=== PATIENT | male | born 1960 | race Caucasian/White ===

== ENCOUNTER 2018-02-28 10:34 | Emergency (ER) | payer MEDICARE, MEDICAID ==
[~2018-02-28] VITALS: Ht 152.4 cm; Wt 81.8 kg
[~2018-02-28 10:34] MED LIST: ALBU18HF2 INH; ASPI-1265 PO; BUPR100T13 PO; BUPR150T8 PO; CALC667T2 PO; CLON-529 PO; CLOT15CR73 TP; COU1T PO; COU5T PO; DIPH-915 PO; DIPH25CA83 PO; DOCU-28 PO; DOCU100C40 PO; FOLI0.8T7 PO; FOLI1TAB34 PO; FURO-149 PO; FURO40TA4 PO; HYDR-3965 PO; LABE100T5 PO; LABE200T28 PO; LEVO250T58 PO; LORA-269 PO; LORA1TAB PO; NIFE90TA37 PO; NITR0.4T51 SL; NITR1OIN TP; PANT-47 PO; PANT20TA3 PO; PANT40TA39 PO; PHO667C PO; QUET25TA PO; RES15C PO; TRAM50TA2 PO; UNABLE TO OBTAIN; VALS40TA2 PO; ZOF4T PO
[2018-02-28] MEDS ORDERED: CEPH500C5 PO (12:43)
[2018-02-28] MEDS ORDERED: CefTRIAXone 1000mg IM Kit (w/lidocaine diluent) IM ONE (12:45)
[2018-02-28] MEDS ORDERED: HYDR-3965 PO (13:07)
[2018-02-28 13:09] VITALS: BP 131/74
== END 2018-02-28 13:11 | disposition home or self-care (01) ==
LOC: ER 10:34
DX: L03.115 Cellulitis of right lower limb (principal); F12.90 Cannabis use, unspecified, uncomplicated; F15.90 Other stimulant use, unspecified, uncomplicated; Z56.0 Unemployment, unspecified; Z79.01 Long term (current) use of anticoagulants; Z79.899 Other long term (current) drug therapy
CPT/HCPCS: 73630; 93971; 96372; 99284; J0696

== ENCOUNTER 2018-11-05 15:26 | Emergency (ER) | payer MEDICARE, MEDICAID ==
[~2018-11-05] VITALS: Ht 175.3 cm; Wt 100.0 kg
[~2018-11-05 15:26] MED LIST changes: +CEPH500C5 PO
[2018-11-05 16:00] VITALS: BP 170/87
[2018-11-05 16:06] LABS: BASOPHILS # (AUTO) 0.1 X10'3 (0-0.2); BASOPHILS % (AUTO) 1.2 % (0-1); EOSINOPHILS # (AUTO) 0.2 X10'3 (0-0.9); EOSINOPHILS % (AUTO) 2.5 % (0-6); HEMATOCRIT 32.4 % (42.0-52.0); HEMOGLOBIN 10.7 g/dl (14.0-17.9); LYMPHOCYTES # (AUTO) 1.1 X10'3 (1.1-4.8); LYMPHOCYTES % (AUTO) 14.1 % (21-51); MEAN CORPUSCULAR HEMOGLOBIN 32.3 PG (27.0-31.0); MEAN CORPUSCULAR HGB CONC 33.1 g/dL (33.0-36.5); MEAN CORPUSCULAR VOLUME 97.6 FL (78-98); MEAN PLATELET VOLUME 6.4 FL (7.4-10.4); MONOCYTES # (AUTO) 0.4 X10'3 (0-0.9); MONOCYTES % (AUTO) 4.8 % (2-12); NEUTROPHILS # (AUTO) 6.1 X10'3 (1.8-7.7); NEUTROPHILS % (AUTO) 77.4 % (42-75); PLATELET COUNT 304 X10'3 (140-440); RED BLOOD COUNT 3.32 X10'6 (4.70-6.10); RED CELL DISTRIBUTION WIDTH 17.8 % (11.5-14.5); WHITE BLOOD COUNT 7.9 X10'3 (4.5-11.0)
[2018-11-05 16:20] LABS: ALANINE AMINOTRANSFERASE 17 U/L (12-78); ALBUMIN 3.7 G/DL (3.4-5.0); ALBUMIN/GLOBULIN RATIO 1.2 (1.1-1.5); ALKALINE PHOSPHATASE 96 IU/L (46-116); ANION GAP 12 (8-16); ASPARTATE AMINO TRANSFERASE 11 U/L (10-37); BILIRUBIN,TOTAL 0.4 MG/DL (0.1-1.0); BLOOD UREA NITROGEN 67 MG/DL (7-18); BUN/CREATININE RATIO 7.1 (5.4-32.0); CALCIUM 9.4 MG/DL (8.5-10.1); CHLORIDE 99 MMOL/L (99-107); CREATININE 9.42 MG/DL (0.60-1.10); GLUCOSE 119 MG/DL (70-104); POTASSIUM 4.5 MMOL/L (3.5-5.1); SODIUM 137 MMOL/L (135-145); TOTAL CARBON DIOXIDE 26.2 MMOL/L (24-32); TOTAL PROTEIN 6.7 G/DL (6.4-8.2); eGFR 6 ML/MIN
[2018-11-05 16:23] LABS: TROPONIN I 0.09 NG/ML (0.0-0.05)
--- NOTE | 2018-11-05 16:31 | NUR ---
pt refusing a cath for urine at this time
== END 2018-11-05 23:45 | disposition home or self-care (01) ==
LOC: ER 15:26
DX: R06.02 Shortness of breath (principal); F15.10 Other stimulant abuse, uncomplicated; R60.0 Localized edema; N18.6 End stage renal disease; J96.10 Chronic respiratory failure, unspecified whether with hypoxia or hypercapnia; F12.90 Cannabis use, unspecified, uncomplicated; Z99.2 Dependence on renal dialysis; Z99.81 Dependence on supplemental oxygen; Z56.0 Unemployment, unspecified; Z79.01 Long term (current) use of anticoagulants; Z79.899 Other long term (current) drug therapy; Z79.82 Long term (current) use of aspirin
CPT/HCPCS: 36415; 71045; 80053; 84484; 85025; 93005; 99284

== ENCOUNTER 2018-11-17 00:46 | Inpatient (IN) | payer MEDICARE, MEDICAID | END 2018-11-21 17:46 | disposition home or self-care (01) | LOC: ER 00:46 → PCU 3S 11-20 13:51 → ICU 2S 04:34 | PROC: 5A1945Z Respiratory Ventilation, 24-96 Consecutive Hours (ICD-10-PCS; principal; ~2018-11-17) | PROC: 0BH17EZ Insertion of Endotracheal Airway into Trachea, Via Natural or Artificial Opening (ICD-10-PCS; ~2018-11-17) | DX: J96.20 Acute and chronic respiratory failure, unspecified whether with hypoxia or hypercapnia (principal); N18.6 End stage renal disease; I13.2 Hypertensive heart and chronic kidney disease with heart failure and with stage 5 chronic kidney disease, or end stage renal disease ==

== ENCOUNTER 2018-12-03 13:16 | Emergency (ER) | payer MEDICARE, MEDICAID ==
[~2018-12-03] VITALS: Ht 175.3 cm; Wt 81.8 kg
[~2018-12-03 13:16] MED LIST changes: +AMLO10TA13 PO; +APIX5TAB3 PO; -ASPI-1265 PO; -BUPR100T13 PO; -BUPR150T8 PO; -CALC667T2 PO; +CARV6.253 PO; -CEPH500C5 PO; +CINA30TA PO; -CLON-529 PO; -CLOT15CR73 TP; -COU1T PO; -COU5T PO; +DICL100G15 TOP; -DIPH-915 PO; -DIPH25CA83 PO; -DOCU100C40 PO; -FOLI1TAB34 PO; -FURO-149 PO; -FURO40TA4 PO; +FURO80TA3 PO; -LABE100T5 PO; -LABE200T28 PO; -LEVO250T58 PO; -LORA-269 PO; -LORA1TAB PO; -NIFE90TA37 PO; -NITR1OIN TP; +OMEP40CA37 PO; +ONDA4TAB6 PO; -PANT-47 PO; -PANT20TA3 PO; -PANT40TA39 PO; -PHO667C PO; -RES15C PO; +SEVE800T8 PO; +SODI15OR6 PO; -TRAM50TA2 PO; -UNABLE TO OBTAIN; -ZOF4T PO
[2018-12-03 13:28] VITALS: BP 107/69
== END 2018-12-03 15:53 | disposition home or self-care (01) ==
LOC: ER 13:16
DX: R60.0 Localized edema (principal); M79.604 Pain in right leg; N18.6 End stage renal disease; Z99.2 Dependence on renal dialysis; F12.90 Cannabis use, unspecified, uncomplicated; F15.90 Other stimulant use, unspecified, uncomplicated; Z79.899 Other long term (current) drug therapy; Z56.0 Unemployment, unspecified; Z60.2 Problems related to living alone
CPT/HCPCS: 93971; 99284